=== PATIENT | female | born 1990 | race Caucasian/White ===

== ENCOUNTER 2020-10-17 10:14 | Outpatient (CLI) | payer OTHER ==
--- NOTE | 2020-10-17 16:53 | Nuclear Medicine Report ---
PROCEDURE: Rest and exercise myocardial perfusion SPECT with gated imaging and ejection fraction INDICATIONS: CHEST PAIN, DYSPNEA RADIOPHARMACEUTICAL: 16.1 mCi Tc-99m Myoview IV at rest and 45.8 mCi Tc-99m Myoview IV at peak exerc ise. Kvw-sns-zluhxdja was performed. TECHNIQUE: Radiopharmaceutical was injected at peak stress test, and also at rest. SPECT images wer e obtained. SPECT myocardial perfusion images were displayed in short axis, horizontal long axis, an d vertical long axis views. Gated images were reviewed using [employer] software. COMPARISON: None available. FINDINGS: Raw data: There is good myocardial labeling by radiotracer. No significant motion artifacts. Lung- to-heart ratio is 0.48 (normal is less than 0.38 for tetrafosmin tracer). Left ventricle function: Gated images demonstrate normal left ventricle wall thickening. No segment al wall motion abnormality. No transient ischemic dilation; TID is 0.94 (normal less than 1.3). The left ventricle resting end-diastolic volume is normal. Left ventricle stress ejection fraction is 6 4%; normal values are above 45%. Myocardial perfusion: There is normal distribution of activity in the left and right ventricular christofer cardium. No fixed or reversible perfusion defects. IMPRESSION: 1. Normal myocardial perfusion images. No perfusion defect to suggest myocardial ischemia or infarct. 2. Normal left ventricular volume and systolic function. 3. Increased msmd-hf-ubodm activity ratio (LHR). This finding is an independent reticular for adverse cardiac event. Clinical correlation is recommended. PQRS ATTESTATIONS: Measure 322 - Is this imaging test primarily performed on a low-risk surgery patient for preoperative evaluation within 30 days preceding their low-risk non-cardiac surgery? Low-risk surgery is defined as cardiac or myocardial infarction less than 1%, including (but not limited to) endoscopic pr ocedures, superficial procedures, cataract surgery, and excisional breast surgery: Answer: No Measure 323 - Is this imaging test performed primarily for the monitoring of an asymptomatic patient who had percutaneous coronary intervention on the visit date or within 2 years of the visit date? An swer: No Measure 324 - Is this imaging test performed primarily for the initial detection and risk assessment on an asymptomatic, low coronary heart disease patient? Low CHD risk definition = clinicians should consider the maximum number of available patient factors used to estimate risk based on [place] (A TP III criteria), typically age, gender, diabetes, smoking status, and use of blood pressure medicati on, and integrate age appropriate estimates for missing elements, such as LDL or standard blood press ure. Answer: No Reviewed by: Krista Serrato MD on 10/17/2020 4:51 PM PST Approved by: Krista Serrato MD on 10/17/2020 4:51 PM PST Station ID: [id number]
--- NOTE | 2020-10-17 18:09 | CARDIAC PROCEDURE NOTE ---
DATE OF SERVICE: 10/17/2020 Physician: Cindy Prasad MD PROTOCOL: Cornelio. TIME: 12 minutes METS: 13.48. REASON FOR STOPPING: The patient had exceeded her target heart rate and had exercised a minute after injection. HEART RATE RESPONSE: 67-171 beyond her target of 163. BLOOD PRESSURE RESPONSE: 115/73-152/66. SYMPTOMS: None. ST SEGMENT RESPONSE: No ST segment elevations or depressions. ARRHYTHMIAS: None. IMPRESSION: No symptoms, no significant EKG changes. CONCLUSION: Await imaging study. TD: 10/17/2020 18:03
== END 2020-10-17 10:15 | disposition home or self-care (01) ==
LOC: DI 10:14
PROVIDERS: ATTEND Internal Medicine
DX: R07.9 Chest pain, unspecified (principal); R06.00 Dyspnea, unspecified
CPT/HCPCS: 78452; 93017; A9500

== ENCOUNTER 2022-02-26 15:29 | Outpatient (CLI) | payer OTHER ==
[2022-02-26 15:57] LABS: ALBUMIN 4.5 g/dL (3.2-5.5); ALBUMIN/GLOBULIN RATIO 1.5 (1.0-2.2); BILIRUBIN,TOTAL 0.6 mg/dL (0.2-1.0); CALCIUM 9.6 mg/dL (8.5-10.3); CREATININE 0.9 mg/dL (0.4-1.0); POTASSIUM 3.8 mmol/L (3.5-5.0); TOTAL PROTEIN 7.5 g/dL (6.7-8.2)
[2022-02-26 16:11] LABS: THYROID STIMULATING HORMONE 1.49 uIU/mL (0.34-5.60)
[2022-02-26 16:14] LABS: FREE T3 3.5 pg/mL (2.5-3.9)
[2022-02-26 16:15] LABS: FREE T4 (FREE THYROXINE) 0.8 ng/dL (0.58-1.64)
== END 2022-02-26 15:30 | disposition home or self-care (01) ==
LOC: LAB.R 15:29
PROVIDERS: ATTEND Internal Medicine
DX: R53.83 Other fatigue (principal); Z83.49 Family history of other endocrine, nutritional and metabolic diseases
CPT/HCPCS: 80053; 82306; 82607; 84439; 84443; 84481; 85025; 86376

== ENCOUNTER 2022-03-01 08:00 | Outpatient (CLI) | payer OTHER ==
[2022-03-01 16:07] LABS: BASOPHILS % (AUTO) 0.3 %; EOSINOPHILS # (AUTO) 0.1 10^3/uL (0.0-0.7); EOSINOPHILS % (AUTO) 1.3 %; HCT - HEMATOCRIT 39.6 % (37.0-47.0); HGB - HEMOGLOBIN 13.7 g/dL (12.0-16.0); LYMPHOCYTES # (AUTO) 1.7 10^3/uL (1.5-3.5); LYMPHOCYTES % (AUTO) 24.5 %; MEAN CORPUSCULAR HEMOGLOBIN 31.6 pg (27.0-31.0); MEAN CORPUSCULAR HGB CONC 34.6 g/dL (32.0-36.0); MEAN CORPUSCULAR VOLUME 91.2 fL (81.0-99.0); MEAN PLATELET VOLUME 9.4 fL (7.9-10.8); MONOCYTES # (AUTO) 0.4 10^3/uL (0.0-1.0); MONOCYTES % (AUTO) 6.3 %; NEUTROPHILS # (AUTO) 4.6 10^3/uL (1.5-6.6); NEUTROPHILS % (AUTO) 67.3 %; PLT - PLATELET COUNT 262 10^3/uL (130-450); RED BLOOD COUNT 4.34 10^6/uL (4.20-5.40); RED CELL DISTRIBUTION WIDTH 11.9 % (12.0-15.0); WHITE BLOOD COUNT 6.8 x10^3/uL (4.8-10.8)
== END 2022-03-01 23:59 | disposition home or self-care (01) ==
LOC: LAB.R 08:00
PROVIDERS: ATTEND Internal Medicine
DX: R53.83 Other fatigue (principal); Z83.49 Family history of other endocrine, nutritional and metabolic diseases
CPT/HCPCS: 85025

== ENCOUNTER 2022-12-26 13:30 | Outpatient (CLI) | payer OTHER ==
[2022-12-27 00:03] LABS: CHLAMYDIA TRACHOMATIS DNA NEGATIVE (NEGATIVE); NEISSERIA GONORRHOEAE DNA NEGATIVE (NEGATIVE); TRICHOMONAS VAGINALIS DNA NEGATIVE (NEGATIVE)
[2022-12-27 06:10] LABS: HIV SCREEN 4TH GENERATION Non Reactive (Non Reactive)
[2022-12-27 07:10] LABS: RPR Non Reactive (Non Reactive)
[2022-12-27 09:10] LABS: HSV 1 IGG TYPE SPEC <0.91 index (0.00-0.90); HSV 2 IGG TYPE SPEC 9.35 index (0.00-0.90)
[2022-12-29 13:09] LABS: HCV AB Equivocal (Non Reactive); HCV IU/ML HCV Not Detected IU/mL (.)
== END 2022-12-26 13:45 | disposition home or self-care (01) ==
LOC: LAB.N 13:30
PROVIDERS: ATTEND Nurse Practitioner
DX: Z11.3 Encounter for screening for infections with a predominantly sexual mode of transmission (principal)
CPT/HCPCS: 36415; 86592; 86695; 86696; 86803; 87389; 87491; 87522; 87591; 87661